=== PATIENT | male | born 1965 | race Caucasian/White ===

== ENCOUNTER 2016-11-12 05:31 | Observation (INO) | payer MEDICAID ==
[2016-11-12] MEDS ORDERED: NS 1,000 ML IV ONE (05:39)
--- NOTE | 2016-11-12 05:39 | EDPHY ---
H & P Stated Complaint: CP HPI/ROS: HPI CHIEF COMPLAINT: Left-sided chest pain HISTORY OF PRESENT ILLNESS: This patient very pleasant 51-year-old male, otherwise healthy no significant medical history presents emergency room with chest discomfort. He describes a sharp stabbing pain. States over the last 2 weeks he has had this intermittently. States it usually occurs in the morning 3 :24 a.m.. It goes away with time. Does not get worse with exertion. He tells me decided come the emergency room as he has been having this intermittently over the past 2 weeks. This morning it got worse. He noticed neck pain and left arm pain. Posterior. He denies any pleuritic pain. Denies nausea or diaphoresis. Denies numbness or tingling. Denies focal weakness. He does tell me he had a stressed over 8 years ago. He has no known cardiac disease. No history of PE. Patient states the pain is currently in left side of his chest. 07/30. He does tell me he has a family history of heart disease. Past Medical History: Denies medical history Past Surgical History: Appendectomy Social History: Lives locally, denies illicit drugs tobacco or alcohol. Family History: Cardiac disease in both sets of grandparents. No premature cardiac . ROS REVIEW OF SYSTEMS: A comprehensive 10 point review of systems is otherwise negative aside from elements mentioned in the history of present illness. Exam Constitutional appears well nontoxic triage nursing summary reviewed, vital signs reviewed, awake/alert. Eyes normal conjunctivae and sclera, EOMI, PERRLA. HENT normal inspection, atraumatic, moist mucus membranes, no epistaxis, neck supple/ no meningismus, no raccoon eyes. Respiratory clear to auscultation bilaterally, normal breath sounds, no respiratory distress, no wheezing. Cardiovascular rate normal, regular rhythm, no murmur, no edema, distal pulses normal. Gastrointestinal soft, non-tender, no rebound, no guarding, normal bowel sounds, no distension, no pulsatile mass. Genitourinary no CVA tenderness. Musculoskeletal no midline vertebral tenderness, full range of motion, no calf swelling, no tenderness of extremities, no meningismus, good pulses, neurovascularly intact. Skin pink, warm, & dry, no rash, skin atraumatic. Neurologic awake, alert and oriented x 3, AAOx3, moves all 4 extremities equally, motor intact, sensory intact, CN II-XII intact, normal cerebellar, normal vision, normal speech. Psychiatric normal mood/affect. Heme/Lymph/Immune no lymphadenopathy. Differential diagnosis includes but is not limited to: ACS, atypical chest pain , pneumothorax, pneumonia, pulmonary embolism, aortic dissection, congestive heart failure, tumor, musculoskeletal pain, esophageal pain, GERD, peptic ulcer disease, pancreatitis Medical Decision Making: Plan for this patient IV establishment IV fluid bolus , full-dose aspirin, chest x-ray two view, check troponin, D-dimer and EKG. Rule out acute coronary syndrome. Re-evaluation: EKG interpretation by me on record in [facility] system. Impression time of EKG 5:45 a.m., this is sinus rhythm rate 64. Borderline T-wave abnormality inferior leads specifically to 3 AVF. Otherwise unremarkable nonischemic EKG. ED x-ray chest two view negative for acute cardiopulmonary disease. [id number]: I feel this patient should be admitted for chest pain rule out. Serial EKGs serial troponins. Reason is his age, family history, pain that goes to his shoulder and neck, and subtle EKG changes in inferior leads. Have discussed this with him he is agreeable for rule out today. Hospital admission. Dr. Montgomery has accepted. Source: Patient - Personal History Current Tetanus/Diphtheria Vaccine: Yes Current Tetanus Diphtheria and Acellular Pertussis (TDAP): Yes Tetanus Vaccine Date: 2011 - Medical/Surgical History Hx Asthma: No Hx Chronic Respiratory Disease: No Hx Diabetes: No Hx Cardiac Disease: No Hx Renal Disease: No Hx Cirrhosis: No Hx Alcoholism: No Hx HIV/AIDS: No Hx Splenectomy or Spleen Trauma: No Other PMH: Appy, R arm fracture, - Social History Smoking Status: Former smoker Constitutional: Initial Vital Signs Temperature (C) 36.7 C 11/12/16 05:34 Heart Rate 65 11/12/16 05:34 Respiratory Rate 16 11/12/16 05:34 Blood Pressure 136/84 H 11/12/16 05:34 O2 Sat (%) 95 11/12/16 05:34 O2 Delivery Mode Room Air Allergies/Adverse Reactions: No Known Allergies Allergy (Unverified 11/12/16 05:34) Home Medications: Medication Instructions Recorded Herbals/Supplements -Info Only 1 ea PO DAILY 11/12/16 Medical Decision Making - Data Points Laboratory Results: Laboratory Results 11/12/16 05:52 Medications Given: Discontinued Medications Sodium Chloride (Ns) 1,000 mls @ 0 mls/hr IV EDNOW ONE; Wide Open PRN Reason: Protocol Stop: 11/12/16 05:40 Last Admin: 11/12/16 06:15 Dose: 1,000 mls Departure - Departure Disposition: [facility] Inpatient Acute Clinical Impression: Chest pain Qualifiers: Chest pain type: unspecified Qualified Code(s): R07.9 - Chest pain, unspecified Condition: Fair
--- NOTE | 2016-11-12 05:46 | CPEKG ---
Heart Rate: 64 RR Interval: 938 P-R Interval: 176 QRSD Interval: 86 QT Interval: 400 QTC Interval: 413 P [place]: 73 QRS [place]: 4 T Wave [place]: -8 EKG Severity - BORDERLINE ECG - EKG Impression: SINUS RHYTHM EKG Impression: BORDERLINE T ABNORMALITIES, INFERIOR LEADS Electronically Signed By: Jass Moser 12-Nov-2016 07:35:46
[2016-11-12 06:00] LABS: % IMMATURE GRANULYOCYTES 0.2 % (0.0-1.1); ABSOLUTE IMMATURE GRANULOCYTES 0.01 10^3/uL (0.00-0.10); ADD DIFF? NO; ADD MORPH? NO; ADD SCAN? NO; ATYPICAL LYMPHOCYTE FLAG 10 (0-99); FRAGMENT RBC FLAG 0 (0-99); HEMATOCRIT 44.1 % (40.0-51.0); HEMOGLOBIN 14.8 g/dL (13.7-17.5); LEFT SHIFT FLG 0 (0-99); LIPEMIA HEMOLYSIS FLAG 80 (0-99); MEAN CELL HEMOGLOBIN 28.6 pg (27.9-34.1); MEAN CELL HEMOGLOBIN CONCENTR. 33.6 g/dL (32.4-36.7); MEAN CELL VOLUME 85.3 fL (81.5-99.8); MEAN PLATELET VOLUME 9.8 fL (8.7-11.7); PLATELET CLUMPS FLAG 0 (0-99); PLATELET COUNT 226 10^3/uL (150-400); RED BLOOD CELL COUNT 5.17 10^6/uL (4.40-6.38); RED CELL DISTRIBUTION WIDTH 13.1 % (11.5-15.2)
[2016-11-12 06:10] LABS: INR 1.01 (0.83-1.16); PROTIME(PATIENT) 13.2 SEC (12.0-15.0)
[2016-11-12 06:11] LABS: APTT 27.4 SEC (23.0-38.0)
[2016-11-12 06:14] LABS: ALANINE AMINOTRANSFERASE 31 IU/L (21-72); ALBUMIN 4.4 g/dL (3.5-5.0); ALKALINE PHOSPHATASE 66 IU/L (38-126); ASPARTATE AMINOTRANSFERASE 24 IU/L (17-59); BILIRUBIN,TOTAL 0.8 mg/dL (0.1-1.4); BILIRUBIN-CONJUGATED 0.1 mg/dL (0.0-0.5); BILIRUBIN-UNCONJUGATED 0.7 mg/dL (0.0-1.1); TOTAL PROTEIN 7.5 g/dL (6.3-8.2)
[2016-11-12 06:27] LABS: CREATINE KINASE-MB FRACTION 1.05 ng/mL (0.00-3.19); TROPONIN I < 0.012 ng/mL (0.000-0.034)
[2016-11-12] MEDS ORDERED: LORazepam 0.5 MG TAB PO PRN (07:56)
[2016-11-12] MEDS ORDERED: ONDANSETRON 4 MG/2 ML VIAL IVP PRN (07:56)
[2016-11-12] MEDS ORDERED: HYDROCODONE/APAP 5/325 TAB PO PRN (07:56)
[2016-11-12] MEDS ORDERED: ACETAMINOPHEN 325 MG TAB PO PRN (07:56)
[2016-11-12] MEDS ORDERED: diphenhydrAMINE 25 MG CAP PO PRN (07:56)
[2016-11-12 08:04] VITALS: BP 123/76; PULSE 57; RESP 17; TEMP 97.7; O2SAT 97
--- NOTE | 2016-11-12 09:00 | GHP ---
[f rep st] HISTORY AND PHYSICAL DATE OF ADMISSION: 11/12/2016 SOURCE: Patient provides history, appears reliable. EMR reviewed, and case discussed with ED provid er. CHIEF COMPLAINT: Chest pain. HISTORY OF PRESENT ILLNESS: This is a very pleasant 51-year-old gentleman with a past medical histor y significant for sleep apnea, on CPAP therapy, who presents to the emergency department today with c omplaints of left-sided chest pain. Patient reports intermittent history for over the past 2 weeks. Generally, the pain will wake him up from sleep at early hours of the morning when they do occur. H kylah has had occasional episodes where he will develop similar pains with a heavy amount of exertion, bu t generally no pain associated with some mild activity. The patient describes his pain as sharp and stabbing, not changed with inspiration or movement. This morning, the patient woke up, and chest madisyn n was slightly different in that he had radiation to his neck, left arm, and straight to his back. T he patient reports he had a stress test approximately 8 years ago, which was normal. The patient den ies any associated shortness of breath, diaphoresis, nausea, vomiting, or palpitations. Patient with out any history of orthopnea, PND. REVIEW OF SYSTEMS: GENERAL: Patient denies any fevers or chills. SKIN: Patient denies any rashes or sores. ENT: The patient does wear glasses. No acute changes in vision. ENT: Patient reports s ome chronic nasal congestion, particularly in the morning, but no sore throat. CV: The patient with chest pain as per HPI. No palpitations. RESPIRATORY: Patient denies any shortness of breath or cough. GI: No nausea, vomiting, or abdominal pain. : No dysuria, hematuria. MUSCULOSKELETAL: Patient with occasional left knee subluxation and associated pain, but denies any myalgias at this time. NEURO: Patient denies any headache, numb ness, or tingling. PSYCH: Patient does have a history of anxiety and depression, but denies any SI or HI and declines supportive care while in the hospital. ALLERGIES: No known drug allergies. HOME MEDICATIONS: Patient takes fish oil, B12, and a multivitamin. PAST MEDICAL HISTORY: Significant for UNIQUE, on CPAP. PAST SURGICAL HISTORY: Significant for appendectomy. FAMILY HISTORY: The patient reports coronary artery disease is present in both sides of grandparents . Maternal grandfather at age 45 from an MS, paternal grandfather in his 70s. The patient states his sister and parents are both healthy, without any medical issues. SOCIAL HISTORY: Patient quit smoking 22 years ago, with a 9-pack year history. Denies any illicit d rug use. He does drink approximately 2 beers weekly. CODE STATUS: Patient is a full code. PHYSICAL EXAM: VITALS: On arrival, temperature 36.7, blood pressure 136/84, heart rate 65, respirat ory rate 16, O2 saturation 95% on room air. Current vitals: Blood pressure 121/88, heart rate 68, respiratory rate 16, O2 saturation 95% on room air. GENERAL: No acute distress, pleasant, obese adult male, appears comfortable in bed and appear s slightly younger than stated age. HEAD: Normocephalic, atraumatic. EYES: Extraocular muscles ar e intact. Pupils equal, round, reactive to light bilaterally and symmetric. No scleral icterus or c onjunctival injection. ENT: Mucous membranes appear moist. No oropharyngeal erythema or exudates. NECK: Supple. Trachea midline. CV: Regular rate and rhythm. No murmurs, rubs, or gallops appreci ated. No chest wall tenderness to palpation. RESPIRATORY: Lungs are clear to auscultation bilatera lly. No wheezes, rales, or rhonchi. ABDOMEN: Obese, soft, nontender to palpation. No rebound, guarding, or masses appreciated. : No suprapubic tenderness to palpation. No Goodwin in place. MUSCULOSKELETAL: Patient's strength is 5/5 , upper and lower extremities. Sits up independently. NEURO: Cranial nerves grossly intact. No fo ryan deficits. Strength intact. PSYCH: Patient is pleasant, cooperative. Thought process, content and questions appropriate. He is awake, alert, and oriented x4. LABORATORY STUDIES: WBC 6.33, H and H 14.8/44.1, MCV of 85.3. Platelet count is 226. No bands. PT is 13.4, INR 1.01. PTT is 27.0. D-dimer is less than 0.27. Magnesium 2.0, total bilirubin 0.8, co njugated bilirubin 0.1, ALT 31, AST 24, alkaline phosphatase of 66. CK is 106. CK-MB is 1.05, tropo maria luz less than 0.012. BTNP is 20, total protein 7.5. Albumin is 4.4, lipase 401. EKG reviewed by me shows normal sinus rhythm in the 60s. Patient with T-wave inversion in lead III a nd nonspecific T-wave changes in the inferior leads. No acute ST elevation. Chest x-ray image reviewed by me. Report is still pending. Nothing acute. ASSESSMENT AND PLAN: This is a pleasant 51-year-old gentleman who presents with complaints of interm ittent chest pain for the past 2 weeks, and now with a change in quality, including radiation to his neck and arm. Patient's heart score is 2. Patient will be admitted to PCU and monitored with serial enzymes and anticipated treadmill stress. He will be made n.p.o. pending a repeat troponin and plan for possible stress. Holding anticoagulation, SCDs p.r.n. Encourage ambulation as tolerated. Will leave morphine available p.r.n. The patient will be placed in observation on PCU and anticipate dis charge if stress test is within normal limits. /[id number]/MODL
[2016-11-12 09:46] LABS: CHOLESTEROL 207 mg/dL (140-220); CHOLESTEROL/HDL RATIO 5.31 RATIO (1.00-4.97); HIGH DENSITY LIPOPROTEIN 39 mg/dL (40-65); LDL/HDL RATIO 3.54 RATIO (1.00-3.64); LOW DENSITY LIPOPROTEIN 138 mg/dL (80-100); NON-HIGH DENSITY LIPOPROTEIN 168 mg/dL (90-129); TRIGLYCERIDE 151 mg/dL (40-150); VERY LOW DENSITY LIPOPROTEINS 30 mg/dL (8-25)
[2016-11-12 09:58] LABS: TROPONIN I < 0.012 ng/mL (0.000-0.034)
--- NOTE | 2016-11-12 11:15 | PDCARST ---
CAR Stress Test Results Type of Stress Test: TM stress test Indication: chest pain Description of Procedure: After informed consent was obtained, pt was exercised according to Gerson Protocol. Monitoring was performed with standard stress electrical high tension tester electrode placement. Vital signs were monitored according to protocol throughout the procedure. STRESS EKG AND HEMODYNAMIC DATA. Exercise time: 10 min. This is equivalent to: 10.8 METS. Resting heart rate: 71 bpm. Resting blood pressure: 114/74 mmHg. Resting O2 saturation: 96 %. Peak heart rate: 182 bpm. This is 107 % of age predicted maximum heart rate response. Peak blood pressure: 184/80 mmHg. Exercise O2: 94 %. Arrhythmias : occasional PACs/PVCs with exertion. Reason for termination: The test was stopped due to maximal effort. Symptoms: The patient had 1/10 pinpoint chest pain on exertion without worsening on exertion. STRESS TEST ANALYSIS. Baseline ECG: SR. Stress ECG: SR. No exercise induced ischemic ECG changes. Rhythm: Rare PACs/PVC singles on exertion/ none in last stage. Blood pressure: Normal blood pressure response to exercise. Exercise tolerance: The patient has normal exercise tolerance adjusted for age and gender. Symptoms: No exercise induced symptoms. Impression: Stress ECG negative for ischemia. The Nobles Treadmill Score 10- 4(1) = +6 low risk Conclusion: Return to client resource specialist if symptoms worsen.
--- NOTE | 2016-11-12 15:47 | ASDISCHSUM ---
Discharge Information Plan Status:Home with No Needs Medically Cleared to Leave:11/12/2016 Discharge Date:11/12/2016 11:41 AM CM D/C Disposition:Home, Routine, Self-Care ADT D/C Disposition:Home, Routine, Self-Care Projected Discharge Date:11/12/2016 11:41 AM Transportation at D/C: Discharge Delay Reason: Follow-Up Date:11/12/2016 11:41 AM Discharge Slot: Final Diagnosis: Placement Information Patient Contact Information Contact Name:SUMIT Relationship:Other Address:[address] [place] [address] City:[place] Alternate Phone: State/Zip Code:[place] [address] Email: Financial Information Financial Class:MD Primary Plan Desc:[employer]IM Primary Plan Number:[id number] Secondary Plan Desc: Secondary Plan Number: Assessment Information Intervention Information
--- NOTE | 2016-11-12 17:22 | GDS ---
[f rep st] DISCHARGE SUMMARY DISCHARGE DIAGNOSES: 1. Chest pain, suspect anxiety. 2. Hyperlipidemia. 3. Obstructive sleep apnea, on continuous positive airway pressure. HISTORY: The patient is a 51-year-old male who presents with chest pain over the last 2 weeks. On t he day of presentation, it was radiating to his arm. He does have a family history of coronary arter y disease in his grandparents. He was admitted to the hospital. HOSPITAL COURSE: He had serial troponins and EKGs that were unremarkable. He had an exercise stress test this morning that was completely normal. Cardiology feels he is low probability for coronary a rtery disease and felt he could discharge home. He does have a lot of recent life stressors, and anx iety is the most likely culprit for the chest pain. It is recommended he follow up with primary care for ongoing management. Incidentally noted during this hospitalization was hyperlipidemia with LDL of 138. He should follow up with primary care regarding management. DISCHARGE MEDICATIONS: Please see computer record for full detailed list. New medications: None. DISCHARGE INSTRUCTIONS: Follow up with primary care for further management of hyperlipidemia. Patient was seen and examined by me on the day of discharge. /[id number]/MODL
== END 2016-11-12 11:41 | disposition home or self-care (01) ==
LOC: F2W 07:42
PROVIDERS: ADMIT Family Medicine; ATTEND Internal Medicine
DX: R07.9 Chest pain, unspecified (principal); E78.5 Hyperlipidemia, unspecified; G47.33 Obstructive sleep apnea (adult) (pediatric); Z87.891 Personal history of nicotine dependence; Z82.49 Family history of ischemic heart disease and other diseases of the circulatory system
CPT/HCPCS: 71020; 93005; 93017; G0378